=== PATIENT | female | born 1945 | race Caucasian/White ===

== ENCOUNTER → 2019-05-29 | Outpatient (CLI) | payer MEDICARE, OTHER ==
[~2019-05-29] MED LIST: ASPI-266 PO; ASPI-587 PO; ATEN25TA PO; ATOR10TA PO; CALC-850 PO; HYDR-3454 PO; LORA10CA PO; MULT-608 PO; OLME1TAB19 PO; OMEG-12 PO; PARO10TA21 PO
--- NOTE | 2019-05-29 11:19 | Diagnostic Imaging Report ---
PROCEDURE: MRI lumbar spine. TECHNIQUE: Multiplanar, multisequence MRI of the lumbar spine was performed without contrast. INDICATION: Back pain. COMPARISON: There are no previous MRI examinations available for comparison. FINDINGS: The previous CT abdomen/pelvis exam of 03/27/2015 from [facility] was reviewed. The reconstructed sagittal images of the lumbar spine from that study showed the vertebral body heights and alignment to be within normal limits. There was narrowing of the disc space at L5-S1. On the T2 images of this exam those findings are again evident. There is desiccation of the disc at every level and there is a disc bulge eccentric to the left at L5-S1. There is no evidence for central stenosis at this level but there is narrowing of the neural foramen on the left. At the L4-L5 level there is a disc bulge centrally which indents the ventral aspect of the thecal sac and narrows the AP diameter to 11 mm. There is also narrowing of the neural foramen on the left due to the disc bulge. At the L3-L4 level there is a broad-based disc bulge eccentric to the left. The AP diameter of the thecal sac is narrowed to 10.8 mm. There is mild narrowing of the neural foramina on the left at this level. The remainder of the lumbar spine is unremarkable for spinal stenosis or nerve root encroachment. There is no abnormal signal arising from the cord or the vertebral bodies to indicate an acute abnormality. There is mottled signal throughout the osseous structures of the lumbar spine and sacrum. This appearance is nonspecific but unlikely to be related to a marrow replacement process such as neoplastic disease. There is no sign of a paraspinal mass. IMPRESSION: 1. 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 While there is no evidence for a high-grade central stenosis at any of these levels, there is narrowing of the neural foramen on the left. 2. The remainder of the lumbar spine is unremarkable for spinal stenosis or nerve root encroachment. 3. There is no sign of an acute bony abnormality or of a cord lesion. Dictated by: Dictated on workstation # [id number]
== END ==
LOC: RAD 08:56
PROVIDERS: ATTEND Nurse Practitioner Family
DX: M51.17 Intervertebral disc disorders with radiculopathy, lumbosacral region (principal); M48.061 Spinal stenosis, lumbar region without neurogenic claudication; M89.9 Disorder of bone, unspecified
CPT/HCPCS: 72148

== ENCOUNTER → 2021-02-23 | Outpatient (CLI) | payer MEDICARE, OTHER ==
--- NOTE | 2021-02-23 11:25 | Diagnostic Imaging Report ---
INDICATION: Hip replacement, postmenopausal screening COMPARISON: Baseline FINDINGS: AP Spine L1-L4: [BMD (g/cm2): 1.041] [T-Score: -1.3] [Z-Score: 0.6] [BMD Previous: na] [BMD % Change: na] LT Hip Neck: [BMD (g/cm2): na] [T-Score: na] [Z-Score: na] LT Hip Total: [BMD (g/cm2):na] [T-Score:na] [Z-Score: na] [BMD Previous: na] [BMD % Change: na] RT Hip Neck: [BMD (g/cm2):0.729] [T-Score:-2.2] [Z-Score:-0.1] RT Hip Total: [BMD (g/cm2):0.806] [T-score:-1.6] [Z-Score:0.4] [BMD Previous:na] [BMD % Change:na] *Indicates significant change from prior examination based on 95% confidence level. World Health Organization criteria for BMD interpretation classify patients as Normal (T-score at or above -1.0), Osteopenic (T-score between -1.0 and -2.5) or Osteoporotic (T-score at or below -2.5). LIMITATIONS AND MODIFICATION: None. FRACTURE RISK (FRAX SCORE): The ten year probability of (%): Major Osteoporotic Fracture: [15.2] Hip Fracture: [4.9] IMPRESSION: 1. Osteopenia (Low bone mass). 2. Baseline examination. 3. See below National Osteoporosis Foundation guidelines on when to potentially initiate pharmacologic therapy. Based on the National Osteoporosis Foundation Guidelines, pharmacologic treatment should be initiated in any of the following, unless clinical conditions suggest otherwise: * Any patient with prior fragility fracture of the hip or vertebrae. A spine fracture indicates 5X risk for subsequent spine fracture and 2X risk for subsequent hip fracture. * Osteoporosis (T-score <-2.5). * Postmenopausal women and men age 50 and older with low bone mass/osteopenia (T-score between -1.0 and -2.5) by DXA and 10-year major osteoporotic fracture greater than 20% or a 10-year probability of hip fracture greater than 3%. These fracture risks are supplied above in the FRAX score, if applicable. * Clinician judgement and/or patient preferences may indicate treatment for people with 10-year fracture probabilities above or below these levels. Dictated by: Dictated on workstation # [id number]
== END ==
LOC: RAD 08:30
PROVIDERS: ATTEND Family Medicine
DX: Z13.820 Encounter for screening for osteoporosis (principal); M85.80 Other specified disorders of bone density and structure, unspecified site; Z78.0 Asymptomatic menopausal state; Z96.643 Presence of artificial hip joint, bilateral
CPT/HCPCS: 77080